=== PATIENT | female | born 1980 | race Caucasian/White ===

== ENCOUNTER 2017-08-16 17:49 | Emergency (ER) | payer OTHER ==
[~2017-08-16] VITALS: Ht 160 cm; Wt 69.5 kg
[2017-08-16 17:49] VITALS: BP 121/60
[2017-08-16] MEDS ORDERED: IBUP-1114 PO (17:55)
[2017-08-16] MEDS ORDERED: IBUP-1022 PO (18:14)
[2017-08-16] MEDS ORDERED: IBUPROFEN 600 MG TAB PO ONE (18:15)
== END 2017-08-16 18:25 | disposition home or self-care (01) ==
LOC: M ED 17:49
DX: S83.92XA Sprain of unspecified site of left knee, initial encounter (principal); Z72.0 Tobacco use; X50.1XXA Overexertion from prolonged static or awkward postures, initial encounter; Y92.830 Public park as the place of occurrence of the external cause; Y93.89 Activity, other specified; Y99.9 Unspecified external cause status

== ENCOUNTER → 2020-04-11 | Outpatient (CLI) | payer OTHER ==
[~2020-04-11] MED LIST: IBUP-1022 PO; IBUP-1114 PO; TAMO20TA8 PO
--- NOTE | 2020-04-13 16:02 | RADONC ---
RADIATION ONCOLOGY TELEPHONE CONSULTATION DATE: 04/11/2020 This is a telemedicine visit. The patient was informed of the risks including security breech, technological failure, inability to perform a comprehensive physical exam which could delay or prevent an accurate diagnosis, and potential complications from treatment decisions rendered over a telemedicine platform. The patient understands and consented to the use of telehealth services phone only. CHART NUMBER: [id number] DIAGNOSIS: Left breast cancer. STAGE: I A, pT1c, pN1 (mi), cM0, grade 2, ER positive, HI positive, HER2/jhony negative, oncotype score 14. ECOG PERFORMANCE STATUS: 0 CONSULTATION NOTE: Ms. Preston is a delightful 39-year-old white female with a diagnosis of a stage I A, pT1c, pN1 (mi), cM0, grade 2, ER positive, HI positive, HER2/jhony negative, oncotype score 14, moderately differentiated grade 2 invasive ductal carcinoma of the left breast who is presenting to sd today status post lumpectomy with sentinel lymph node biopsy for consideration of postoperative radiation therapy for conservative breast management. HISTORY OF PRESENT ILLNESS: The patient was in her usual state of health until November of this year when she first noticed a pea-sized lesion in her left breast in the upper outer quadrant when taking a shower. This was painless and there was no discharge. She was subsequently seen by a physician and a mammogram was undertaken at the [facility] on January 17, 2020. This revealed a 0.5 cm x 0.5 cm x 1 cm mass in the upper outer quadrant of the left breast. It was located in the 1 o'clock position. A subsequent MRI of the breast was undertaken on January 28, 2020 and this confirmed a mass measuring 1.3 cm x 1 cm x 1.2 cm with mild enhancement in the upper outer quadrant of the left breast. On 03/17/2020, the patient underwent lumpectomy and sentinel lymph node biopsy. Pathology revealed a 1.5 cm moderately differentiated, grade 2, again invasive ductal carcinoma of the left breast. All margins of resection were negative for malignancy. A total of four sentinel lymph nodes were sampled with one positive for 0.55 mm of micrometastasis. The tumor was found to be estrogen receptor positive, progesterone receptor positive and HER2/jhony negative. The patient had an oncotype test undertaken with an oncotype score of 14 and was therefore thought to have no benefit from chemotherapy. She is now being referred for consideration of postoperative radiation therapy for conservative breast management. PAST MEDICAL HISTORY: The patient's past medical history and is positive for a D and C. She has been in otherwise good health. ALLERGIES: The patient is allergic to CODEINE, PENICILLIN, and NSAIDS. SOCIAL HISTORY: The patient has smoked half a pack of cigarettes per day for the past 17 years. She drinks alcohol socially. FAMILY HISTORY: The patient's family history is positive for a brother with testicular cancer. REVIEW OF SYSTEMS: The patient's review of systems is noncontributory. Denies nausea, vomiting, fevers, chills, night sweats, diplopia, headaches, anxiety or depression, anorexia, weight loss, visual disturbances, chest pain, urinary or bowel difficulties, bone pain, or neurological problems. PHYSICAL EXAMINATION: Physical examination was deferred at this point as per COVID-19 precautions. This was a telephone consultation. ASSESSMENT: Clearly the patient is a candidate for external beam radiation therapy and I have so informed her. I have discussed with the patient in detail the potential benefits as well as possible acute and chronic sequelae of external beam radiation therapy. We discussed logistics of treatment planning, simulation and subsequent fractionated daily radiation treatments. I discussed with her conventional fractionated radiation versus hypofractionated radiation as per the [place] protocol as well. We discussed the benefits and drawbacks of each. We also discussed the lack of long-term cosmetic data with regards to the [place] protocol considering her young age of 39. I have scheduled the patient for the next available simulation slot and radiation treatments will begin subsequently. She will decide on her fractionation schedule once simulation is completed and we have run some report computer plans. Thank you for allowing us to participate in the care of this very pleasant woman. If I can be of any further assistance or provide you with any information, please feel free to contact me anytime. As always, warm regards. cc: Benson Taylor MD
== END ==
LOC: M ONCR 13:09
PROVIDERS: ATTEND Radiology Radiation Oncology
DX: C50.912 Malignant neoplasm of unspecified site of left female breast (principal)

== ENCOUNTER 2020-04-13 14:05 | Outpatient (RCR) | payer OTHER ==
[2020-04-13 15:04] LABS: HEMATOCRIT 41.6 % (36.0-47.0); HEMOGLOBIN 13.5 g/dl (12.0-15.5); MEAN CORPUSCULAR HEMOGLOBIN 28.2 pg (27.0-33.0); MEAN CORPUSCULAR HGB CONC 32.5 g/dl (32.0-36.5); PLATELET COUNT, AUTOMATED 185 10^3/uL (150-450); RED BLOOD COUNT 4.78 10^6/uL (4.00-5.40)
--- NOTE | 2020-04-19 13:00 | RADONC ---
RADIATION ONCOLOGY SIMULATION NOTE DATE: 04/13/2020 CHART #: [id number] Ms. Crow was taken to the CT scan for CT simulation of her left breast field. CT was accomplished without difficulty or discomfort. Radiation treatment planning is underway and radiation treatments will be given subsequently. An immobilization device was created and will be used throughout the course of treatment. It was created without difficulty or discomfort. I was physically present throughout the course of CT simulation.
== END 2020-04-23 ==
LOC: M ONCR 14:05
PROVIDERS: ATTEND Radiology Radiation Oncology
DX: C50.412 Malignant neoplasm of upper-outer quadrant of left female breast (principal)

== ENCOUNTER → 2020-05-23 | Outpatient (RCR) | payer OTHER ==
--- NOTE | 2020-04-30 09:03 | RADONC ---
RADIATION ONCOLOGY PROGRESS NOTE DATE: 04/24/2020 CHART NUMBER: [id number] PROGRESS NOTE: Ms. Preston underwent her first fraction of radiation today to her left breast and it was tolerated without difficulty or discomfort. REVIEW OF SYSTEMS: The patient's review of systems is noncontributory. Denies nausea, vomiting, fevers, chills, night sweats, diplopia, headaches, anxiety or depression, anorexia, weight loss, visual disturbances, chest pain, urinary or bowel difficulties, bone pain, or neurological problems. PHYSICAL EXAMINATION: Clearly today was her first fraction of radiation and there was no skin change present on physical examination. The remainder of her physical examination remained unchanged as well. Ms. Preston tolerated her first fraction quite well and radiation will continue as scheduled.
--- NOTE | 2020-05-04 23:40 | RADONC ---
RADIATION ONCOLOGY PROGRESS NOTE DATE: 05/01/2020 CHART NUMBER: [id number] Ms. Preston is presently at a dose of 1080 cGy to her left breast and is tolerating treatments quite well at this point except for fatigue. She reports she is quite tired. The patient's review of systems is positive for fatigue but is otherwise noncontributory. She denies nausea, vomiting, fevers, chills, night sweats, diplopia, headaches, anxiety or depression, anorexia, weight loss, visual disturbances, chest pain, urinary or bowel difficulties, bone pain, or neurological problems. PHYSICAL EXAMINATION: The patient's skin is in good condition with no evidence of moist or dry desquamation. The remainder of her physical exam remains unchanged. Ms. Preston is tolerating treatments quite well and radiation will continue as scheduled.
--- NOTE | 2020-05-10 10:24 | RADONC ---
RADIATION ONCOLOGY PROGRESS NOTE DATE: 05/08/2020 CHART #: [id number] Ms. Preston is presently at a dose of 1980 cGy to her left breast and is tolerating treatments quite well at this point with no significant difficulties related to her radiation therapy other than fatigue. REVIEW OF SYSTEMS: The patient's review of systems is positive for fatigue, but is otherwise noncontributory. Denies nausea, vomiting, fevers, chills, night sweats, diplopia, headaches, anxiety or depression, anorexia, weight loss, visual disturbances, chest pain, urinary or bowel difficulties, bone pain, or neurological problems. She denies standard review of systems. PHYSICAL EXAMINATION: The patient's skin is in good condition with no evidence of moist or dry desquamation. The remainder of her physical exam remains unchanged. Ms. Preston and is tolerating treatments well and radiation will continue as scheduled.
--- NOTE | 2020-05-17 14:28 | RADONC ---
RADIATION ONCOLOGY DATE OF SERVICE: 05/08/2020 CHART NUMBER: [id number] Ms. Preston is a 39-year-old lady who carries a diagnosis of left breast CA. So far, she has received dose of 2880 cGy in 16 fractions. She tolerated treatment well without any unusual side effect. REVIEW OF SYSTEMS: There are no complaints other than a little fatigue. Denies nausea or vomiting, fever or chills. Denies sweat, headache.She has no GI symptpms PHYSICAL EXAMINATION: There is a mild degree of skin erythema mostly upper medial quadrant of the left breast with some itching. I have discussed skin care and also advised to use a cotton bra. Overall, she is tolerating treatment well and radiation therapy will continue as planned. MTDD
--- NOTE | 2020-05-25 09:25 | RADONC ---
RADIATION ONCOLOGY DATE OF SERVICE: 05/22/2020 CHART NUMBER: [id number] Ms. Preston is a 39-year-old lady who carries a diagnosis of left breast CA. So far, she has received dose of 3780 cGy in 21 fractions. She tolerated treatment well without unusual side effect. She developed a moderate degree of skin erythema with some itching. Electron setup for boost was done today. REVIEW OF SYSTEMS: She has no complaints other than a little fatigue. She denies fever, chills, headache. No or GI symptoms. PHYSICAL EXAMINATION: She is in good general condition and there is moderate degree of skin erythema mostly upper medial quadrant of the left breast with itching. I discussed skin care and also advised to use hydrocodone cream for itching. Overall, she is tolerating treatment well and the radiation therapy will continue as planned. MTDD
== END ==
LOC: M ONCR 04-24 12:14
PROVIDERS: ATTEND Radiology Radiation Oncology
DX: C50.412 Malignant neoplasm of upper-outer quadrant of left female breast (principal)